=== PATIENT | female | born 1960 | race Caucasian/White ===

== ENCOUNTER → 2017-11-15 | Outpatient (CLI) | payer BC ==
[2017-11-15 16:03] LABS: FREE T3 3.36 pg/mL (2.77-5.27); FREE T4 (FREE THYROXINE) 1.51 ng/dL (0.78-2.19)
[2017-11-15 16:17] LABS: THYROID STIMULATING HORMONE 0.18 uIU/mL (0.47-4.68)
== END ==
LOC: OD 14:30
PROVIDERS: ATTEND Surgery
DX: E03.9 Hypothyroidism, unspecified (principal)
CPT/HCPCS: 36415; 84439; 84443; 84481